=== PATIENT | female | born 1965 | race Caucasian/White ===

== ENCOUNTER → 2022-06-24 13:57 | Outpatient (BNVA) | payer MEDICARE, SELFPAY | PROVIDERS: Visit Provider Nurse Practitioner Family | DX: N39.0 Urinary tract infection, site not specified (principal) | CPT/HCPCS: 81000 ==

== ENCOUNTER → 2022-09-25 16:27 | Outpatient (BNVA) | payer MEDICARE, SELFPAY | PROVIDERS: Visit Provider Emergency Medicine | DX: R35.0 Frequency of micturition (principal); J00 Acute nasopharyngitis [common cold] | CPT/HCPCS: 81000 ==